=== PATIENT | female | born 1950 | race Two or more races ===

== ENCOUNTER 2021-12-05 08:27 | Outpatient (CLI) | payer OTHER | END 2021-12-05 08:31 | disposition home or self-care (01) | LOC: EDBD 08:27 → RAD 08:27 | PROVIDERS: ATTEND Internal Medicine | DX: M53.1 Cervicobrachial syndrome (principal); M54.51 Vertebrogenic low back pain; M54.6 Pain in thoracic spine ==

== ENCOUNTER 2023-02-12 14:09 | Emergency (ER) | payer OTHER ==
[~2023-02-12] VITALS: Ht 149.9 cm; Wt 65.8 kg
[2023-02-12] MEDS ORDERED: SYNTHROID75 MCG PO (14:44)
[2023-02-12] MEDS ORDERED: GLUCOTROL XL5 MG PO (14:45)
[2023-02-12] MEDS ORDERED: ECOTRIN81 MG (14:45)
[2023-02-12] MEDS ORDERED: GLUMETZA1000 MG (14:45)
[2023-02-12] MEDS ORDERED: LOSARTAN POTASS50 MG PO (14:46)
[2023-02-12] MEDS ORDERED: PROTONIX40 MG PO (14:46)
[2023-02-12] MEDS ORDERED: LIPITOR40 M1 PO (14:46)
[2023-02-12] MEDS ORDERED: MECLIZINE HCL12.5 MG PO (21:30)
== END 2023-02-12 21:32 | disposition home or self-care (01) ==
LOC: ER 14:09
DX: R42 Dizziness and giddiness (principal); Z88.2 Allergy status to sulfonamides

== ENCOUNTER 2023-03-18 11:53 | Emergency (ER) | payer OTHER ==
[~2023-03-18] VITALS: Ht 149.9 cm; Wt 66.7 kg
[~2023-03-18 11:53] MED LIST: ECOTRIN81 MG; GLUCOTROL XL5 MG PO; GLUMETZA1000 MG; LIPITOR40 M1 PO; LOSARTAN POTASS50 MG PO; MECLIZINE HCL12.5 MG PO; PROTONIX40 MG PO; SYNTHROID75 MCG PO
== END 2023-03-18 13:44 | disposition home or self-care (01) ==
LOC: ER 11:53
DX: M13.88 Other specified arthritis, other site (principal); I10 Essential (primary) hypertension; Z88.2 Allergy status to sulfonamides; Z91.041 Radiographic dye allergy status

== ENCOUNTER 2025-02-08 20:39 | Emergency (ER) | payer OTHER ==
[~2025-02-08] VITALS: Ht 152.4 cm; Wt 77.1 kg
[2025-02-08] MEDS ORDERED: ORPHENADRINE CITRATE 30 MG/ML AMPUL IM STA (22:25)
== END 2025-02-09 | disposition home or self-care (01) ==
LOC: ER 20:39
DX: M79.605 Pain in left leg (principal); Z88.2 Allergy status to sulfonamides; Z91.041 Radiographic dye allergy status
CPT/HCPCS: 93005; 96372; 99283; J2360

== ENCOUNTER 2025-02-17 08:48 | Emergency (ER) | payer OTHER ==
[~2025-02-17] VITALS: Ht 149.9 cm; Wt 68.0 kg
[2025-02-17 10:30] LABS: HEMATOCRIT 35.7 % (36.0-45.00); HEMOGLOBIN 11.9 g/dL (12.0-15.00); MEAN CELL VOLUME 85.6 fL (80.00-100.00); MEAN CORPUSCULAR HEMOGLOBIN 28.5 pg (27.00-32.0); MEAN CORPUSCULAR HGB CONC 33.3 g/dl (32.0-36.0); PLATELET COUNT 371 K/uL (150-450); RED BLOOD COUNT 4.17 M/uL (4.00-6.00); RED CELL DISTRIBUTION WIDTH 14.8 % (11.5-14.5)
[2025-02-17 11:17] LABS: CALCIUM 9.9 mg/dL (8.5-10.1); CREATININE SERUM 0.94 mg/dL (0.55-1.02); GFR 58.21; POTASSIUM 3.27 mEq/L (3.5-5.1)
[2025-02-17 11:21] LABS: PH,URINE 6.5; URINE BILIRRUBIN SMALL (NEGATIVE); URINE BLOOD LARGE; URINE GLUCOSE NEGATIVE (NEGATIVE); URINE KETONE TRACE (NEGATIVE); URINE LEUKOCYTE MODERATE; URINE NITRATE POSITIVE
[2025-02-17 11:24] LABS: URINE APPEARANCE BLOODY; URINE COLOR RED; URINE PROTEIN >=300 (NEGATIVE)
[2025-02-17 11:25] LABS: URINE RBC LOADED /HPF; URINE WBC 13-20 /hpf
[2025-02-17 11:26] LABS: URINE BACTERIA FEW; URINE CRYSTALS NEGATIVE /HPF; URINE EPITHELIAL CELLS 0-4 /HPF
== END 2025-02-17 12:52 | disposition home or self-care (01) ==
LOC: ER 08:48
PROVIDERS: General Practice
DX: N39.0 Urinary tract infection, site not specified (principal); Z91.041 Radiographic dye allergy status; Z88.2 Allergy status to sulfonamides; J45.909 Unspecified asthma, uncomplicated; E78.00 Pure hypercholesterolemia, unspecified; E03.8 Other specified hypothyroidism; I10 Essential (primary) hypertension; E11.9 Type 2 diabetes mellitus without complications; Z79.84 Long term (current) use of oral hypoglycemic drugs

== ENCOUNTER 2025-02-23 08:45 | Emergency (ER) | payer OTHER ==
[~2025-02-23] VITALS: Ht 149.9 cm; Wt 69.9 kg
[2025-02-23] MEDS ORDERED: PHENAZOPYRIDIN100 MG PO (10:03)
[2025-02-23] MEDS ORDERED: CEFTRIAXONE SODIUM 1,000 MG VIAL IV ONE (11:45)
[2025-02-23] MEDS ORDERED: CEFTRIAXONE SODIUM 1,000 MG VIAL ONE (11:51)
[2025-02-23 12:14] LABS: BASO % 0.5 % (0.1-1.2); EOS # 0.14 (0.04-0.54); EOS % 1.8 % (0.7-7.0); HEMATOCRIT 33.3 % (34.1-44.9); HEMOGLOBIN 10.9 g/dL (11.2-15.7); LYMPH % 35.3 % (19.3-53.1); MEAN CORPUSCULAR HEMOGLOBIN 28.2 pg (25.6-32.2); MONO # 0.64 (0.24-0.82); MONO % 8.4 % (4.7-12.5); NEUT # 4.11 (1.56-6.13); NEUT % 53.9 % (34.0-71.1); PLATELET COUNT 402 K/uL (163-369); RED BLOOD COUNT 3.87 M/uL (3.93-5.22); RED CELL DISTRIBUTION WIDTH 13.6 % (11.6-14.4)
[2025-02-23 12:24] LABS: PH,URINE 6.5 (5.0-8.0); URINE APPEARANCE Clear; URINE BILIRRUBIN Negative (NEGATIVE); URINE BLOOD Negative; URINE COLOR Dark Yellow; URINE GLUCOSE Negative (NEGATIVE); URINE KETONE Negative (NEGATIVE); URINE LEUKOCYTE Trace; URINE NITRATE Positive; URINE PROTEIN Negative (NEGATIVE)
[2025-02-23 12:29] LABS: URINE EPITHELIAL CELLS 12.6 uL (0.0-38.8); URINE RBC 3.9 uL (0.0-20.8); URINE WBC 84.6 uL (0.0-23.2)
[2025-02-23 12:38] LABS: CALCIUM 9.1 mg/dL (8.5-10.1); CREATININE SERUM 0.94 mg/dL (0.55-1.02); GFR 58.21; POTASSIUM 4.26 mEq/L (3.5-5.1)
[2025-02-23 13:09] LABS: URINE BACTERIA 1.2 uL (0.0-1933); URINE CAST 0.29 uL (0.0-1.40)
== END 2025-02-23 16:25 | disposition home or self-care (01) ==
LOC: ER 08:57
PROVIDERS: Emergency Medicine
DX: N39.0 Urinary tract infection, site not specified (principal); Z88.2 Allergy status to sulfonamides; Z91.041 Radiographic dye allergy status